=== PATIENT | male | born 1930 | race Caucasian/White ===

== ENCOUNTER 2022-01-15 16:03 | Emergency (ER) | payer OTHER ==
[~2022-01-15] VITALS: Ht 152.4 cm; Wt 73.5 kg
--- NOTE | 2022-01-15 16:25 | NUR ---
ETIENNE C/O RIGHT HAND LACERATION S/P GLF ON 01/02/22, SUTURED AND REMOVED 01/11/22. RATES PAIN 09/27. WILL CONTINUE TO MONITOR THE PATIENT. Addendum: 01/15/22 at 1716 by GFAUSTINO Prescription given to pt.
[2022-01-15] MEDS ORDERED: CEPH500C2 PO (17:06)
--- NOTE | 2022-01-15 17:16 | NUR ---
Patient discharged to home in stable condition. Written and verbal after care instructions given. Patient verbalizes understanding of instruction.
[2022-01-15 17:17] VITALS: BP 129/77
== END 2022-01-15 17:17 | disposition home or self-care (01) ==
LOC: ER 16:11
DX: T81.33XA Disruption of traumatic injury wound repair, initial encounter (principal); G40.909 Epilepsy, unspecified, not intractable, without status epilepticus; I10 Essential (primary) hypertension